=== PATIENT | female | born 1995 | race Caucasian/White ===

== ENCOUNTER 2019-11-14 02:41 | Emergency (ER) | payer OTHER ==
[~2019-11-14] VITALS: Ht 154.9 cm; Wt 70.0 kg
--- NOTE | 2019-11-14 03:38 | PHYS DOC ---
Past Medical History Past Medical History: No Pertinent History Past Surgical History: No Surgical History Smoking Status: Never Smoker Alcohol Use: None General Adult EDM: Chief Complaint: DENTAL PROBLEM HPI: HPI: Patient is a 23 year old female who presents with recent dental surgery. Patient reports she has some teeth removed on Saturday. Since then she has had some on and off pain. Today she presents with pain this morning. She had developed a dry socket and when she went and saw the dentist he applied some medication that took the pain away. Today she is here complaining of pain and is concerned that there is some swelling. She is worried that she may have an infection. She denies any fever, chills, difficulty swallowing. She describes the pain is achy, constant and nonradiating Review of Systems: Review of Systems: Constitutional: Denies fever or chills. [] Eyes: Denies change in visual acuity. [] HENT: Denies nasal congestion or sore throat. [] Respiratory: Denies cough or shortness of breath. [] Cardiovascular: Denies chest pain or edema. [] GI: Denies abdominal pain, nausea, vomiting, bloody stools or diarrhea. [] Heart Score: Risk Factors: Risk Factors: DM, Current or recent (<one month) smoker, HTN, HLP, family history of CAD, obesity. Risk Scores: Score 0 - 3: 2.5% MACE over next 6 weeks - Discharge Home Score 4 - 6: 20.3% MACE over next 6 weeks - Admit for Clinical Observation Score 7 - 10: 72.7% MACE over next 6 weeks - Early Invasive Strategies Physical Exam: PE: Constitutional: Well developed, well nourished, no acute distress, non-toxic appearance. [] HENT: Normocephalic, atraumatic, bilateral external ears normal, oropharynx moist, no oral exudates, nose normal. On the left mandible there is a wound that appears to be well-healing with no gingival edema, pointing abscess but some healing granulation tissue with some superficial exudative changes. Floor the mouth was unremarkable, there was no soft tissue swelling of the chin or skin of the face. [] Eyes: PERRLA, EOMI, conjunctiva normal, no discharge. [] Neck: Normal range of motion, no tenderness, supple, no stridor. [] Cardiovascular:Heart rate regular rhythm, no murmur [] Lungs & Thorax: Bilateral breath sounds clear to auscultation [] Current Patient Data: Vital Signs: Vital Signs Date Time Temp Pulse Resp B/P (MAP) Pulse Ox O2 Delivery O2 Flow Rate FiO2 11/14/19 03:00 98.7 60 18 117/71 (86) 99 Room Air 98.7 EKG: EKG: [] Radiology/Procedures: Radiology/Procedures: [] Course & Med Decision Making: Course & Med Decision Making Pertinent Labs and Imaging studies reviewed. (See chart for details) [id number]-patient was seen and examined. No accident medical or surgical problems identified today. I do not think she has an infection and is just basically suffering from postoperative changes. However we will give her something for pain. I will give her 1 dose of antibiotics and she can follow-up with her dentist that she has planned for this morning. [] Dragon Disclaimer: Dragon Disclaimer: This electronic medical record was generated, in whole or in part, using a voice recognition dictation system. Departure Departure Impression: Primary Impression: Pain, dental Additional Impression: Dry socket Disposition: 01 HOME, SELF-CARE Condition: IMPROVED Referrals: SUMANTH DURAN MD (PCP) Additional Instructions: Follow-up with your dentist as you have planned today Justicifation of Admission Dx: Justifications for Admission: Justification of Admission Dx: N/A ERIKA RICHARDS MD Nov 14, 2019 03:38
[2019-11-14] MEDS ORDERED: SMZ/TMP 800/160MG TABLET. PO ONE (03:45)
[2019-11-14] MEDS ORDERED: HYDROcodone/APAP 10/325 1 TAB TABLET PO ONE (04:15)
[2019-11-14 04:16] VITALS: BP 139/83
[2019-11-14] MEDS ORDERED: DOXYCYCLINE HYCLATE 100 MG TABLET PO ONE (04:30)
== END 2019-11-14 04:18 | disposition home or self-care (01) ==
LOC: ER 02:41
DX: K08.89 Other specified disorders of teeth and supporting structures (principal); M27.3 Alveolitis of jaws; R60.0 Localized edema
CPT/HCPCS: 99283

== ENCOUNTER 2020-07-14 13:44 | Emergency (ER) | payer OTHER ==
[~2020-07-14] VITALS: Ht 154.9 cm; Wt 61.3 kg
[2020-07-14 14:08] VITALS: BP 143/99
--- NOTE | 2020-07-14 14:38 | ED.ADGEN ---
Past Medical History Past Medical History: No Pertinent History Past Surgical History: No Surgical History Smoking Status: Never Smoker Alcohol Use: None General Adult EDM: Chief Complaint: DRUG ABUSE HPI: HPI: Patient is a 24-year-old female who presents to the emergency room complaining of Xanax withdrawal. Patient states that she dropped her Xanax bottle on Saturday and has not taken them since. She is try to call her primary care doctor who has not returned her phone call. She states she is having a headache and anxiety. She denies any other symptoms. She is unsure, she neck she typically takes a day. She states her anxiety has been worse than usual. She is supposed to leave town tomorrow. Review of Systems: Review of Systems: Complete ROS is negative unless otherwise documented in HPI Current Medications: Current Medications Medications (Trade) Dose Ordered Sig/Anabela Start Time Stop Time Status Last Admin Dose Admin Sumatriptan Succinate (Imitrex) 25 mg 1X ONCE 07/14/20 14:45 07/14/20 14:45 DC 07/14/20 14:44 25 MG Allergies: Allergies: Allergies Coded Allergies Type Severity Reaction Last Updated Verified sulfamethoxazole Allergy Intermediate rash 11/14/19 Yes trimethoprim Allergy Intermediate rash 11/14/19 Yes Physical Exam: PE: General: Awake, alert, NAD. Well Nourished, well hydrated. Cooperative HEENT: Atraumatic, EOMI, PERRL, airway patent, moist oral mucosa Neck: Supple, trachea midline Respiratory: CTA bilaterally, normal effort, no wheezing/crackles CV: RRR, no murmur, cap refill <2 GI: Soft, nondistended, nontender, no masses MSK: No obvious deformities Skin: Warm, dry, intact Neuro: A&O x3, speech NL, sensory and motor grossly intact, no focal deficits Psych: Normal affect, normal mood, not suicidal or homicidal Current Patient Data: Vital Signs: Vital Signs Date Time Temp Pulse Resp B/P (MAP) Pulse Ox O2 Delivery O2 Flow Rate FiO2 07/14/20 14:08 98.3 92 20 143/99 (114) 100 Room Air 98.3 EKG: EKG: [] Heart Score: C/O Chest Pain: N/A Risk Factors: Risk Factors: DM, Current or recent (<one month) smoker, HTN, HLP, family history of CAD, obesity. Risk Scores: Score 0 - 3: 2.5% MACE over next 6 weeks - Discharge Home Score 4 - 6: 20.3% MACE over next 6 weeks - Admit for Clinical Observation Score 7 - 10: 72.7% MACE over next 6 weeks - Early Invasive Strategies Radiology/Procedures: Radiology/Procedures: [] Course & Med Decision Making: Course & Med Decision Making Pertinent Labs and Imaging studies reviewed. (See chart for details) Patient is 24-year-old female who presents to the emergency room complaining of Xanax withdrawal. Patient is well-appearing. Vitals are normal. I discussed with the patient that in the computer system on [place] it states that she should have 53 pills at this time. I discussed with her that she will need to follow-up with her primary care physician. We have discussed signs and symptoms of Xanax withdrawal and she should come back if she starts having severe symptoms of withdrawal. She was given triptan for her headache. Patient's test results and vitals while in the ED were fully reviewed and discussed with the patient. Patient is stable and at this time does not need admission to the hospital. We have discussed strict return precautions and the importance of following up with their Primary Care Physician. Patient stated understanding and was given an opportunity to ask any questions. Patient is in agreement with plan. Aby Disclaimer: Aby Disclaimer: This electronic medical record was generated, in whole or in part, using a voice recognition dictation system. Departure Departure Impression: Primary Impression: Benzodiazepine dependence Disposition: HOME / SELF CARE / HOMELESS Condition: STABLE Referrals: MERRICK BRENNAN PA-C (PCP) Patient Instructions: Benzodiazepine Withdrawal ZENAIDA CRAVEN MD Jul 14, 2020 14:38
== END 2020-07-14 14:45 | disposition home or self-care (01) ==
LOC: ER 13:44
DX: F13.20 Sedative, hypnotic or anxiolytic dependence, uncomplicated (principal); R51.9 Headache, unspecified; F41.9 Anxiety disorder, unspecified; Z88.2 Allergy status to sulfonamides; Z88.8 Allergy status to other drugs, medicaments and biological substances
CPT/HCPCS: 99283